=== PATIENT | female | born 1950 | race Caucasian/White ===

== ENCOUNTER 2017-09-25 04:19 | Emergency (ER) | payer MEDICARE, MEDICAID ==
[2017-09-25] MEDS ORDERED: Ondansetron HCl/PF 4 MG/2 ML Vial ONE (04:50)
[2017-09-25] MEDS ORDERED: Lorazepam 2 MG/ML VIAL ONE (06:14)
== END 2017-09-25 12:09 | disposition home or self-care (01) ==
LOC: ERS 04:19
DX: S32.039A Unspecified fracture of third lumbar vertebra, initial encounter for closed fracture (principal); F10.129 Alcohol abuse with intoxication, unspecified; I48.91 Unspecified atrial fibrillation; I10 Essential (primary) hypertension; F32.9 Major depressive disorder, single episode, unspecified; F17.210 Nicotine dependence, cigarettes, uncomplicated; Z79.899 Other long term (current) drug therapy; Z79.82 Long term (current) use of aspirin; W19.XXXA Unspecified fall, initial encounter
CPT/HCPCS: 36415; 80307; 96374; 96375; 96376; 99406; J2060; J2270; J2405